=== PATIENT | female | born 1970 | race Caucasian/White ===

== ENCOUNTER 2017-11-15 08:28 | Inpatient (IN) | payer MEDICAID, OTHER ==
[~2017-11-15] VITALS: Ht 162.6 cm; Wt 83.0 kg
[2017-11-15 08:28] VITALS: BP_SYST 154
[2017-11-15] MEDS ORDERED: ALBUTEROL SULFATE 0.083% 2.5 MG/3 ML VIAL.NEB IH ONE (09:45)
[2017-11-15] MEDS ORDERED: IPRATROPIUM BROM 0.5 MG/2.5 ML VIAL.NEB (ATROVENT) IH ONE (09:45)
[2017-11-15] MEDS ORDERED: NACL 0.9% 1,000 ML IV ONE (09:45)
[2017-11-15 10:12] LABS: INR 0.9 (0.8-1.2); PROTHROMBIN TIME 8.9 SECS (9.5-12.5)
[2017-11-15 10:13] LABS: CALCIUM 8.6 mg/dL (8.4-11.0); CREATININE 0.49 mg/dL (0.55-1.30); POTASSIUM 4.3 mmol/L (3.5-5.1)
[2017-11-15] MEDS ORDERED: MORPHINE 4 MG/ML INJ. SYRINGE IVP ONE (10:15)
[2017-11-15] MEDS ORDERED: ONDANSETRON HCL 4 MG/2 ML VIAL IVP ONE (10:15)
[2017-11-15 10:18] LABS: ALBUMIN 2.8 g/dL (3.4-4.8); TOTAL BILIRUBIN 0.3 mg/dL (0.0-1.0)
[2017-11-15 10:26] LABS: BASOPHILS # (AUTO) 0.1 K/uL (0.0-0.2); BASOPHILS % (AUTO) 0.7 % (0.0-2.0); EOSINOPHILS # (AUTO) 0.1 K/uL (0.0-0.4); EOSINOPHILS % (AUTO) 0.4 % (0.0-4.0); HEMATOCRIT 32.7 % (36-48); HEMOGLOBIN 11.3 g/dL (12.0-16.0); LYMPHOCYTES # (AUTO) 0.9 K/uL (1.0-5.5); LYMPHOCYTES % (AUTO) 5.8 % (20.5-51.5); MEAN CORPUSCULAR HEMOGLOBIN 32 pg (27-31); MEAN CORPUSCULAR HGB CONC 35 % (32-36); MEAN CORPUSCULAR VOLUME 91 fL (79.0-98.0); MONOCYTES # (AUTO) 1.5 K/uL (0.0-1.0); MONOCYTES % (AUTO) 10.5 % (1.7-9.3); NEUTROPHILS # (AUTO) 12.2 K/uL (1.8-7.7); NEUTROPHILS % (AUTO) 82.6 % (40.0-70.0); PLATELET COUNT (AUTO) 260 K/uL (130-430); RED BLOOD CELL COUNT(AUTO) 3.59 MIL/uL (4.2-6.2); RED CELL DISTRIBUTION WIDTH 13.1 % (9.0-15.0); WHITE BLOOD COUNT (AUTO) 14.8 K/uL (4.8-10.8)
[2017-11-15] MEDS ORDERED: NORG1TAB10 PO (10:39)
[2017-11-15] MEDS ORDERED: OXYB10TA4 PO (10:39)
[2017-11-15] MEDS ORDERED: CITA40TA22 PO (10:39)
[2017-11-15] MEDS ORDERED: OMEP40CA33 PO (10:39)
[2017-11-15] MEDS ORDERED: AZITHROMYCIN 500 MG in NS 250 ML IV ONE ×2 (10:45→16:30)
[2017-11-15] MEDS ORDERED: cefTRIAXone 1 GM in D5W 50 ML IV ONE ×2 (10:45→16:30)
[2017-11-15] MEDS ORDERED: cefTRIAXone 1 GM VIAL ONE (11:03)
[2017-11-15] MEDS ORDERED: AZITHROMYCIN 500 MG/VIAL (ZITHROMAX) IV ONE (11:03)
[2017-11-15] MEDS ORDERED: MORPHINE 2 MG/ML INJ. SYRINGE IVP ONE (11:30)
[2017-11-15] MEDS ORDERED: ONDANSETRON HCL 4 MG/2 ML VIAL IVP PRN (13:45)
[2017-11-15] MEDS ORDERED: MAG-AL HYDROX/SIMETH 30 ML UDC PO PRN (13:45)
[2017-11-15 13:46] VITALS: BP_SYST 140
[2017-11-15] MEDS ORDERED: PANTOPRAZOLE SODIUM 40 MG TAB PO ONE ×2 (16:00)
[2017-11-15 16:31] VITALS: BP_SYST 140
[2017-11-15] MEDS: MORPHINE 2 MG/ML INJ. SYRINGE IVP PRN ×2 (17:45→22:55)
[2017-11-15 19:24] LABS: HCG,QUAL RESULT NEGATIVE (NEGATIVE)
[2017-11-15 19:30] VITALS: BP_SYST 140
[2017-11-15] MEDS: IPRATROPIUM/ALBUTEROL SULFATE 3 ML AMPUL.NEB INH SCH (19:31)
[2017-11-15] MEDS: ACETAMINOPHEN 325 MG TABLET PO PRN (20:26)
[2017-11-15] MEDS: BENZONATATE 100 MG CAPSULE (TESSALON) PO SCH (20:26)
[2017-11-15] MEDS ORDERED: BUDESONIDE 0.5 MG/2 ML AMPUL.NEB INH ONE (23:00)
[2017-11-16] VITALS: BP_SYST 124
[2017-11-16] MEDS: IPRATROPIUM/ALBUTEROL SULFATE 3 ML AMPUL.NEB INH SCH ×4 (00:51→19:26)
[2017-11-16 02:50] LABS: BILIRUBIN,URINE NEGATIVE (NEGATIVE); BLOOD, URINE NEGATIVE (NEGATIVE); CLARITY/URINE CLEAR (CLEAR); COLOR,URINE YELLOW (YELLOW); GLUCOSE,URINE NEGATIVE (NEGATIVE); KETONES,URINE NEGATIVE (NEGATIVE); LEUKOCYTE ESTERASE ,URINE NEGATIVE (NEGATIVE); NITRITE, URINE NEGATIVE (NEGATIVE); PH,URINE 5.5 (5.0-8.0); PROTEIN URINE NEGATIVE (NEGATIVE); UROBILINOGEN,URINE 0.2 (0.2-1.0)
[2017-11-16 08:00] VITALS: BP_SYST 151
[2017-11-16] MEDS: cefTRIAXone 1 GM in D5W 50 ML IV SCH (08:07)
[2017-11-16] MEDS: MORPHINE 2 MG/ML INJ. SYRINGE IVP PRN ×4 (08:30→21:05)
[2017-11-16] MEDS: BENZONATATE 100 MG CAPSULE (TESSALON) PO SCH ×3 (10:14→21:05)
[2017-11-16] MEDS: PANTOPRAZOLE SODIUM 40 MG TAB PO SCH (10:14)
[2017-11-16] MEDS: AZITHROMYCIN 500 MG in NS 250 ML IV SCH (10:14)
[2017-11-16] MEDS ORDERED: CITALOPRAM HYDROBROMIDE 20 MG TABLET PO ONE (12:15)
[2017-11-16 12:35] VITALS: BP_SYST 146
[2017-11-16 13:14] LABS: BASOPHILS # (AUTO) 0.1 K/uL (0.0-0.2); BASOPHILS % (AUTO) 0.8 % (0.0-2.0); EOSINOPHILS # (AUTO) 0.1 K/uL (0.0-0.4); EOSINOPHILS % (AUTO) 0.6 % (0.0-4.0); HEMATOCRIT 31.6 % (36-48); HEMOGLOBIN 10.9 g/dL (12.0-16.0); LYMPHOCYTES # (AUTO) 1.1 K/uL (1.0-5.5); LYMPHOCYTES % (AUTO) 7.7 % (20.5-51.5); MEAN CORPUSCULAR HEMOGLOBIN 31 pg (27-31); MEAN CORPUSCULAR HGB CONC 34 % (32-36); MEAN CORPUSCULAR VOLUME 92 fL (79.0-98.0); MONOCYTES # (AUTO) 0.9 K/uL (0.0-1.0); NEUTROPHILS # (AUTO) 12.3 K/uL (1.8-7.7); NEUTROPHILS % (AUTO) 84.9 % (40.0-70.0); PLATELET COUNT (AUTO) 258 K/uL (130-430); RED BLOOD CELL COUNT(AUTO) 3.46 MIL/uL (4.2-6.2); RED CELL DISTRIBUTION WIDTH 12.9 % (9.0-15.0); WHITE BLOOD COUNT (AUTO) 14.5 K/uL (4.8-10.8)
[2017-11-16 13:31] LABS: ANION GAP 8 (5-15); CALCIUM 8.2 mg/dL (8.4-11.0); CHLORIDE 100 mmol/L (98-107); CREATININE 0.61 mg/dL (0.55-1.30); GLUCOSE 124 mg/dL (70-99); POTASSIUM 4.2 mmol/L (3.5-5.1); SODIUM SERUM 135 mmol/L (136-145); UREA NITROGEN, BLOOD 6 mg/dL (8-21)
[2017-11-16 13:39] LABS: GFR AFRICAN AMERICAN 135 mL/min (>90)
[2017-11-16 16:39] VITALS: BP_SYST 148
[2017-11-16 19:20] VITALS: BP_SYST 142
[2017-11-16] MEDS: ACETAMINOPHEN 325 MG TABLET PO PRN (23:06)
[2017-11-17 00:26] VITALS: BP_SYST 145
[2017-11-17] MEDS: IPRATROPIUM/ALBUTEROL SULFATE 3 ML AMPUL.NEB INH SCH ×5 (00:35→23:54)
[2017-11-17] MEDS: MORPHINE 2 MG/ML INJ. SYRINGE IVP PRN ×5 (01:06→21:02)
[2017-11-17] MEDS ORDERED: DIPHENHYDRAMINE HCL 50 MG CAPSULE PO ONE (06:45)
[2017-11-17 08:00] VITALS: BP_SYST 141
[2017-11-17] MEDS: CITALOPRAM HYDROBROMIDE 20 MG TABLET PO SCH (08:50)
[2017-11-17] MEDS: cefTRIAXone 1 GM in D5W 50 ML IV SCH (08:50)
[2017-11-17] MEDS: PANTOPRAZOLE SODIUM 40 MG TAB PO SCH (08:51)
[2017-11-17] MEDS: DOCUSATE SODIUM 250 MG CAPSULE PO SCH ×2 (08:51→20:57)
[2017-11-17] MEDS: BENZONATATE 100 MG CAPSULE (TESSALON) PO SCH ×3 (08:51→20:57)
[2017-11-17] MEDS ORDERED: NORGESTIMATE ETHINYL ESTRADIOL PO SCH (09:00)
[2017-11-17] MEDS: AZITHROMYCIN 500 MG in NS 250 ML IV SCH (10:18)
[2017-11-17 12:11] VITALS: BP_SYST 124
[2017-11-17 16:27] VITALS: BP_SYST 136
[2017-11-17 19:30] VITALS: BP_SYST 141
[2017-11-17] MEDS ORDERED: MORPHINE 2 MG/ML INJ. SYRINGE IVP PRN (21:45)
[2017-11-18 00:30] VITALS: BP_SYST 145
[2017-11-18] MEDS: MILK OF MAGNESIA 30 ML UDC PO PRN ×2 (05:18→21:26)
[2017-11-18] MEDS: DIPHENHYDRAMINE HCL 25 MG CAPSULE PO PRN (05:19)
[2017-11-18 07:15] LABS: BASOPHILS % (AUTO) 0.4 % (0.0-2.0); EOSINOPHILS # (AUTO) 0.4 K/uL (0.0-0.4); EOSINOPHILS % (AUTO) 4.2 % (0.0-4.0); HEMATOCRIT 30.1 % (36-48); HEMOGLOBIN 10.3 g/dL (12.0-16.0); LYMPHOCYTES # (AUTO) 1.5 K/uL (1.0-5.5); LYMPHOCYTES % (AUTO) 17.1 % (20.5-51.5); MEAN CORPUSCULAR HEMOGLOBIN 32 pg (27-31); MEAN CORPUSCULAR HGB CONC 34 % (32-36); MEAN CORPUSCULAR VOLUME 93 fL (79.0-98.0); MONOCYTES # (AUTO) 0.8 K/uL (0.0-1.0); MONOCYTES % (AUTO) 9.7 % (1.7-9.3); NEUTROPHILS # (AUTO) 5.8 K/uL (1.8-7.7); NEUTROPHILS % (AUTO) 68.6 % (40.0-70.0); PLATELET COUNT (AUTO) 304 K/uL (130-430); RED BLOOD CELL COUNT(AUTO) 3.25 MIL/uL (4.2-6.2); RED CELL DISTRIBUTION WIDTH 12.9 % (9.0-15.0); WHITE BLOOD COUNT (AUTO) 8.5 K/uL (4.8-10.8)
[2017-11-18 07:25] LABS: ALBUMIN 2.6 g/dL (3.4-4.8); CALCIUM 8.7 mg/dL (8.4-11.0); CREATININE 0.62 mg/dL (0.55-1.30); TOTAL BILIRUBIN 0.2 mg/dL (0.0-1.0)
[2017-11-18 07:58] VITALS: BP_SYST 145
[2017-11-18] MEDS: IPRATROPIUM/ALBUTEROL SULFATE 3 ML AMPUL.NEB INH SCH ×3 (07:58→19:28)
[2017-11-18 08:00] VITALS: BP_SYST 142
[2017-11-18] MEDS: BENZONATATE 100 MG CAPSULE (TESSALON) PO SCH ×3 (09:06→21:26)
[2017-11-18] MEDS: PANTOPRAZOLE SODIUM 40 MG TAB PO SCH (09:06)
[2017-11-18] MEDS: cefTRIAXone 1 GM in D5W 50 ML IV SCH (09:06)
[2017-11-18] MEDS: CITALOPRAM HYDROBROMIDE 20 MG TABLET PO SCH (09:07)
[2017-11-18] MEDS: HYDROcodone/ACETAMIN 10-325 MG TAB PO PRN ×3 (09:07→22:56)
[2017-11-18] MEDS: DOCUSATE SODIUM 250 MG CAPSULE PO SCH ×2 (09:07→21:26)
[2017-11-18] MEDS: AZITHROMYCIN 500 MG in NS 250 ML IV SCH (10:17)
[2017-11-18 11:22] VITALS: BP_SYST 135
[2017-11-18 17:17] VITALS: BP_SYST 142
[2017-11-18 19:05] VITALS: BP_SYST 134
[2017-11-18] MEDS: PIPERACILLIN/TAZO 4.5GM/DEX-IS 100 ML IV SCH (21:26)
[2017-11-19] MEDS: IPRATROPIUM/ALBUTEROL SULFATE 3 ML AMPUL.NEB INH SCH ×4 (01:07→20:47)
[2017-11-19] MEDS: PIPERACILLIN/TAZO 4.5GM/DEX-IS 100 ML IV SCH ×3 (05:35→21:25)
[2017-11-19 08:00] VITALS: BP_SYST 147
[2017-11-19] MEDS: HYDROcodone/ACETAMIN 10-325 MG TAB PO PRN ×2 (08:29→15:34)
[2017-11-19] MEDS: PANTOPRAZOLE SODIUM 40 MG TAB PO SCH (08:29)
[2017-11-19] MEDS: DOCUSATE SODIUM 250 MG CAPSULE PO SCH ×2 (08:29→21:24)
[2017-11-19] MEDS: CITALOPRAM HYDROBROMIDE 20 MG TABLET PO SCH (08:29)
[2017-11-19] MEDS: BENZONATATE 100 MG CAPSULE (TESSALON) PO SCH ×3 (08:29→21:24)
[2017-11-19] MEDS: AZITHROMYCIN 500 MG in NS 250 ML IV SCH (08:32)
[2017-11-19 12:00] VITALS: BP_SYST 144
[2017-11-19 16:00] VITALS: BP_SYST 132
[2017-11-19] MEDS ORDERED: MULTIVITS,CA,MINERALS/IRON/FA 1 TABLET PO ONE (16:30)
[2017-11-19] MEDS ORDERED: CHOLECALCIFEROL (VITAMIN D3) 2,000 UNIT TABLET PO ONE (16:30)
[2017-11-19 19:50] VITALS: BP_SYST 150
[2017-11-19] MEDS: HYDROcodone/ACETAMIN 5-325 MG TAB (NORCO/ VICODIN) PO PRN (23:42)
[2017-11-20 00:58] VITALS: BP_SYST 139
[2017-11-20] MEDS: IPRATROPIUM/ALBUTEROL SULFATE 3 ML AMPUL.NEB INH SCH ×3 (01:00→19:39)
[2017-11-20] MEDS: PIPERACILLIN/TAZO 4.5GM/DEX-IS 100 ML IV SCH ×3 (06:43→21:58)
[2017-11-20] MEDS: HYDROcodone/ACETAMIN 10-325 MG TAB PO PRN ×3 (07:01→21:57)
[2017-11-20 07:42] VITALS: BP_SYST 145
[2017-11-20] MEDS: DOCUSATE SODIUM 250 MG CAPSULE PO SCH ×2 (08:32→21:58)
[2017-11-20] MEDS: CHOLECALCIFEROL (VITAMIN D3) 2,000 UNIT TABLET PO SCH (08:32)
[2017-11-20] MEDS: BENZONATATE 100 MG CAPSULE (TESSALON) PO SCH ×3 (08:32→21:58)
[2017-11-20] MEDS: CITALOPRAM HYDROBROMIDE 20 MG TABLET PO SCH (08:32)
[2017-11-20] MEDS: PANTOPRAZOLE SODIUM 40 MG TAB PO SCH (08:32)
[2017-11-20] MEDS: MULTIVITS,CA,MINERALS/IRON/FA 1 TABLET PO SCH (08:32)
[2017-11-20 14:20] VITALS: BP_SYST 134
[2017-11-20 17:44] VITALS: BP_SYST 138
[2017-11-20 20:11] VITALS: BP_SYST 137
[2017-11-21] MEDS: IPRATROPIUM/ALBUTEROL SULFATE 3 ML AMPUL.NEB INH SCH ×3 (00:22→13:28)
[2017-11-21 00:55] VITALS: BP_SYST 134
[2017-11-21] MEDS: DIPHENHYDRAMINE HCL 25 MG CAPSULE PO PRN (03:05)
[2017-11-21] MEDS: HYDROcodone/ACETAMIN 5-325 MG TAB (NORCO/ VICODIN) PO PRN (03:06)
[2017-11-21] MEDS: HYDROcodone/ACETAMIN 10-325 MG TAB PO PRN (04:41)
[2017-11-21] MEDS: PIPERACILLIN/TAZO 4.5GM/DEX-IS 100 ML IV SCH ×2 (06:29→14:43)
[2017-11-21 08:00] VITALS: BP_SYST 131
[2017-11-21] MEDS: CITALOPRAM HYDROBROMIDE 20 MG TABLET PO SCH (08:03)
[2017-11-21] MEDS: DOCUSATE SODIUM 250 MG CAPSULE PO SCH (08:03)
[2017-11-21] MEDS: BENZONATATE 100 MG CAPSULE (TESSALON) PO SCH ×2 (08:03→14:49)
[2017-11-21] MEDS: MULTIVITS,CA,MINERALS/IRON/FA 1 TABLET PO SCH (08:03)
[2017-11-21] MEDS: PANTOPRAZOLE SODIUM 40 MG TAB PO SCH (08:03)
[2017-11-21] MEDS: CHOLECALCIFEROL (VITAMIN D3) 2,000 UNIT TABLET PO SCH (08:04)
[2017-11-21 12:00] VITALS: BP_SYST 146
[2017-11-21 13:30] VITALS: BP_SYST 131
[2017-11-21 15:45] VITALS: BP_SYST 139
[2017-11-21 16:00] VITALS: BP_SYST 139
[2017-11-21] MEDS ORDERED: AMOX-423 PO (16:24)
[2017-11-21] MEDS ORDERED: FLUC200T PO (16:25)
[2017-11-21] MEDS ORDERED: ALBMDI INH (16:26)
== END 2017-11-21 17:16 | disposition home or self-care (01) | DRG 720 ==
LOC: SED 08:28 → STU 12:38 → SMU 11-18 23:58
PROVIDERS: ADMIT Internal Medicine; ATTEND Internal Medicine
DX: A41.9 Sepsis, unspecified organism (principal); J96.00 Acute respiratory failure, unspecified whether with hypoxia or hypercapnia; E43 Unspecified severe protein-calorie malnutrition; J18.9 Pneumonia, unspecified organism; B38.2 Pulmonary coccidioidomycosis, unspecified; K21.9 Gastro-esophageal reflux disease without esophagitis; F17.210 Nicotine dependence, cigarettes, uncomplicated; F32.9 Major depressive disorder, single episode, unspecified; J20.9 Acute bronchitis, unspecified; D64.9 Anemia, unspecified; E87.1 Hypo-osmolality and hyponatremia; Z79.899 Other long term (current) drug therapy; Z79.3 Long term (current) use of hormonal contraceptives
CPT/HCPCS: 36415; 36600; 70450-TC; 71045; 71250-TC; 80048; 80053; 81003; 81025; 82784; 82803-TC; 83605; 83615-TC; 83735-TC; 84484; 84703; 85025; 85610-TC; 86635; 87040-TC; 87070-TC; 87205-TC; 93005; 94640; 94760; 96361; 96365; 96367; 96375; 99285; J0456; J0696; J2270; J2405; J2543; J7030; J7050; J7060; J7613; J7620; J7626; Q0163

== ENCOUNTER 2018-06-28 20:35 | Emergency (ER) | payer MEDICAID ==
[~2018-06-28] VITALS: Ht 162.6 cm; Wt 78.9 kg
[~2018-06-28 20:35] MED LIST: ALBMDI INH; AMOX-423 PO; CITA40TA22 PO; FLUC200T PO; NORG1TAB10 PO; OMEP40CA33 PO; OXYB10TA4 PO
[2018-06-28 20:43] VITALS: BP_SYST 129
--- NOTE | 2018-06-29 00:24 | NUR ---
Patient to ER bed 8 to gown for evaluation. Side rails up.
--- NOTE | 2018-06-29 00:55 | NUR ---
Patient to ER via triage for evaluation of cough and congestion, patient is awake, alert and oriented in no acute distress, vital signs stable, respirations even and unlabored, skin warm and dry to touch. Patient able to ambulate without difficulty to bed 8, awaiting evaluation by ER MD, will continue to observe and assess.
--- NOTE | 2018-06-29 01:10 | NUR ---
ER at bedside examining patient.
[2018-06-29] MEDS ORDERED: AMOXICILLIN 500 MG CAPSULE PO ONE (01:15)
[2018-06-29 01:45] VITALS: BP_SYST 120
--- NOTE | 2018-06-29 01:45 | NUR ---
Patient given written and verbal discharge instructions and verbalizes understanding. ER MD discussed with patient the results and treatment provided. Patient in stable condition. ID arm band removed. Rx of Amoxicillin given. Patient educated on pain management and to follow up with PMD. Pain Scale 0. Opportunity for questions provided and answered. Medication side effect fact sheet provided. Patient left ER in no acute distress, able to ambulate without difficulty with slow, steady gait. No adverse reaction noted to medication.
== END 2018-06-29 01:45 | disposition home or self-care (01) ==
LOC: SED 20:35
DX: J06.9 Acute upper respiratory infection, unspecified (principal); R03.0 Elevated blood-pressure reading, without diagnosis of hypertension; K21.9 Gastro-esophageal reflux disease without esophagitis; Z79.899 Other long term (current) drug therapy
CPT/HCPCS: 71046-TC; 99283

== ENCOUNTER 2018-08-19 18:41 | Emergency (ER) | payer MEDICAID ==
[~2018-08-19] VITALS: Ht 162.6 cm; Wt 74.8 kg
[2018-08-19 18:42] VITALS: BP_SYST 164
[2018-08-19] MEDS ORDERED: IPRATROPIUM/ALBUTEROL SULFATE 3 ML AMPUL.NEB (DUONEB) INH ONE (19:00)
[2018-08-19] MEDS ORDERED: KETOROLAC TROMETHAMINE 60 MG/2 ML VIAL IM ONE (19:00)
[2018-08-19] MEDS ORDERED: HYDROcodone/ACETAMIN 5-325 MG TAB (NORCO/ VICODIN) PO ONE (19:45)
== END 2018-08-19 20:05 | disposition home or self-care (01) ==
LOC: SED 18:41
DX: J20.9 Acute bronchitis, unspecified (principal); R03.0 Elevated blood-pressure reading, without diagnosis of hypertension; K21.9 Gastro-esophageal reflux disease without esophagitis; F32.9 Major depressive disorder, single episode, unspecified; Z87.891 Personal history of nicotine dependence; Z79.899 Other long term (current) drug therapy
CPT/HCPCS: 71045; 81025; 94640; 96372; 99283; J1885; J7620

== ENCOUNTER 2021-12-15 00:09 | Emergency (ER) | payer MEDICAID ==
[~2021-12-15] VITALS: Ht 162.6 cm; Wt 85.3 kg
[~2021-12-15 00:09] MED LIST changes: +OMEP40CA20 PO; -OMEP40CA33 PO
[2021-12-15 00:20] VITALS: BP_SYST 159
--- NOTE | 2021-12-15 00:20 | NUR ---
Patient triaged and placed in waiting room. VSS and patient appears in no acute distress at this time. Accompanied by , awaiting available bed, and MD notified of need for MSE.
--- NOTE | 2021-12-15 00:22 | NUR ---
ER examining patient in the triage room.
[2021-12-15] MEDS ORDERED: IBUPROFEN 800 MG TABLET PO ONE (00:30)
--- NOTE | 2021-12-15 00:30 | NUR ---
Patient to ER bed nichols to gown for evaluation. Side rails up.
--- NOTE | 2021-12-15 00:40 | NUR ---
Xray performed at the bedside. Pt tolerated well.
[2021-12-15] MEDS ORDERED: IBUP-1970 PO (01:16)
[2021-12-15] MEDS ORDERED: HYDROcodone/ACETAMIN 5-325 MG TAB (NORCO/ VICODIN) PO ONE (01:30)
--- NOTE | 2021-12-15 01:57 | NUR ---
Patient given written and verbal discharge instructions and verbalizes understanding. ER MD discussed with patient the results and treatment provided. Patient in stable condition. ID arm band removed. Rx of Ibuprofen given. Patient educated on pain management and to follow up with PMD. Pain Scale 5/10. Opportunity for questions provided and answered. Medication side effect fact sheet provided.
[2021-12-15 01:58] VITALS: BP_SYST 145
== END 2021-12-15 01:58 | disposition home or self-care (01) ==
LOC: SED 00:09
DX: M25.562 Pain in left knee (principal); K21.9 Gastro-esophageal reflux disease without esophagitis; Z79.899 Other long term (current) drug therapy
CPT/HCPCS: 73564; 99283

== ENCOUNTER 2022-06-23 00:18 | Emergency (ER) | payer MEDICAID ==
[~2022-06-23] VITALS: Ht 162.6 cm; Wt 86.2 kg
[~2022-06-23 00:18] MED LIST changes: +IBUP-1970 PO
[2022-06-23 00:37] VITALS: BP_SYST 149
[2022-06-23] MEDS ORDERED: LIDOCAINE PATCH 5% 1 EA TP ONE (01:00)
[2022-06-23] MEDS ORDERED: KETOROLAC TROMETHAMINE 30 MG VIAL IM ONE (01:00)
[2022-06-23] MEDS ORDERED: CEPH-548 PO (01:54)
[2022-06-23] MEDS ORDERED: cephALEXin 500 MG CAPSULE PO ONE (02:00)
[2022-06-23] MEDS ORDERED: DIF100 PO (02:33)
[2022-06-23 02:44] VITALS: BP_SYST 124
[2022-06-23 02:44] LABS: HEMATOCRIT 33.6 % (36-48); HEMOGLOBIN 11.4 g/dL (12.0-16.0); MEAN CORPUSCULAR HEMOGLOBIN 31 pg (27-31); MEAN CORPUSCULAR HGB CONC 34 % (32-36); MEAN CORPUSCULAR VOLUME 91 fL (79.0-98.0)
[2022-06-23 02:51] LABS: BASOPHILS # (AUTO) 0.1 K/uL (0.0-0.2); BASOPHILS % (AUTO) 1.2 % (0.0-2.0); EOSINOPHILS # (AUTO) 0.3 K/uL (0.0-0.4); EOSINOPHILS % (AUTO) 3.6 % (0.0-4.0); LYMPHOCYTES # (AUTO) 2.3 K/uL (1.0-5.5); LYMPHOCYTES % (AUTO) 24.7 % (20.5-51.5); MONOCYTES # (AUTO) 0.9 K/uL (0.0-1.0); MONOCYTES % (AUTO) 9.9 % (1.7-9.3); NEUTROPHILS # (AUTO) 5.8 K/uL (1.8-7.7); NEUTROPHILS % (AUTO) 60.6 % (40.0-70.0); PLATELET COUNT (AUTO) 202 K/uL (130-430); WHITE BLOOD COUNT (AUTO) 9.5 K/uL (4.8-10.8)
== END 2022-06-23 02:48 | disposition home or self-care (01) ==
LOC: SED 00:18
DX: L03.115 Cellulitis of right lower limb (principal); M54.2 Cervicalgia; M79.661 Pain in right lower leg; K21.9 Gastro-esophageal reflux disease without esophagitis; I10 Essential (primary) hypertension; Z79.899 Other long term (current) drug therapy
CPT/HCPCS: 99285; 93971; 85025; 36415; 96372; J1885

== ENCOUNTER 2022-07-22 17:28 | Emergency (ER) | payer MEDICAID ==
[~2022-07-22] VITALS: Ht 162.6 cm; Wt 86.2 kg
[~2022-07-22 17:28] MED LIST changes: +CEPH-548 PO; +DIF100 PO
[2022-07-22 17:33] VITALS: BP_SYST 168
--- NOTE | 2022-07-22 17:45 | NUR ---
PT TRIAGED AND TAKEN TO ROOM 5. ENDORSED TO [facility]. PT BIB WITH C/O C/P, SOB, DIZZINESS, PALPITATIONS. PT S/P RIGHT LEG DVT 3 WEEKS AGO AND IS TAKING ELIQUIS.
--- NOTE | 2022-07-22 17:50 | NUR ---
Pt bib self from home. Chief complaint right leg pain; pt with full ROM, Pt dorsal flexion without complaint skin dry and intact. Pt denies pain AAOX3 pt states recent diagnosis of DVT ro right lower extremity. Pt is afebrile. Pt states feels :"flush and dizziness" Pt started Eloquis and was hospitalized in past month with clots found behind lung.
--- NOTE | 2022-07-22 17:59 | NUR ---
Pt to radiology via [facility].
--- NOTE | 2022-07-22 18:11 | NUR ---
ER at bedside examining patient.
--- NOTE | 2022-07-22 18:20 | NUR ---
Pt signed consent for CT with contrast.
[2022-07-22 18:53] LABS: BASOPHILS % (AUTO) 0.8 % (0.0-2.0); EOSINOPHILS # (AUTO) 0.1 K/uL (0.0-0.4); EOSINOPHILS % (AUTO) 2.5 % (0.0-4.0); HEMATOCRIT 35.4 % (36-48); HEMOGLOBIN 12.1 g/dL (12.0-16.0); LYMPHOCYTES # (AUTO) 1.8 K/uL (1.0-5.5); LYMPHOCYTES % (AUTO) 31.1 % (20.5-51.5); MEAN CORPUSCULAR HEMOGLOBIN 31 pg (27-31); MEAN CORPUSCULAR HGB CONC 34 % (32-36); MEAN CORPUSCULAR VOLUME 91 fL (79.0-98.0); MONOCYTES # (AUTO) 0.7 K/uL (0.0-1.0); NEUTROPHILS # (AUTO) 3.2 K/uL (1.8-7.7); NEUTROPHILS % (AUTO) 53.6 % (40.0-70.0); PLATELET COUNT (AUTO) 292 K/uL (130-430); RED BLOOD CELL COUNT(AUTO) 3.87 MIL/uL (4.2-6.2); RED CELL DISTRIBUTION WIDTH 13.3 % (9.0-15.0); WHITE BLOOD COUNT (AUTO) 5.9 K/uL (4.8-10.8)
[2022-07-22 19:10] LABS: ALANINE AMINOTRANSFERASE 23 U/L (12-78); ALBUMIN 3.6 g/dL (3.4-4.8); ANION GAP 10 (5-15); ASPARTATE AMINOTRANSFERASE 17 U/L (10-37); CHLORIDE 96 mmol/L (98-107); CREATININE 0.76 mg/dL (0.55-1.30); GFR AFRICAN AMERICAN 103 mL/min (>90); GLUCOSE 83 mg/dL (70-99); TOTAL BILIRUBIN 0.2 mg/dL (0.0-1.0); UREA NITROGEN, BLOOD 16 mg/dL (8-21)
[2022-07-22] MEDS ORDERED: iohexoL 350 mgI/mL, 100 ML INFUS..BTL IV ONE (19:18)
--- NOTE | 2022-07-22 20:42 | NUR ---
PT HAD US AT BEDSIDE, AMUBULATED TO RESTROOM, NO COMPLAINTS AWAITING RESULTS ACCORDING TO PT. PT CONNECTED TO VS MONITOR.
[2022-07-22 21:35] VITALS: BP_SYST 168
--- NOTE | 2022-07-22 21:36 | NUR ---
Patient given written and verbal discharge instructions and verbalizes understanding. ER MD discussed with patient the results and treatment provided. Patient in stable condition. ID arm band removed. IV catheter removed intact and dressing applied, no active bleeding. Patient educated on NON SPECIFIC CHEST pain management and to follow up with PMD. Pain Scale . Opportunity for questions provided and answered. Medication side effect fact sheet provided.
== END 2022-07-22 21:35 | disposition home or self-care (01) ==
LOC: SED 17:28
DX: R07.81 Pleurodynia (principal); E87.1 Hypo-osmolality and hyponatremia; Z86.711 Personal history of pulmonary embolism; I10 Essential (primary) hypertension; K21.9 Gastro-esophageal reflux disease without esophagitis; Z79.899 Other long term (current) drug therapy
CPT/HCPCS: 99285; 71275; 93971; 71045; 80053; 85025; 84484; 36415; 93005; 76376; Q9967